=== PATIENT | female | born 1995 | race Caucasian/White ===

== ENCOUNTER 2022-01-20 19:07 | Emergency (ER) | payer OTHER ==
[2022-01-20 19:19] VITALS: BP 187/89; PULSE 97; RESP 16; TEMP 98.3
[2022-01-20] MEDS ORDERED: HYDROcodone/APAP 5-325MG 1 EACH TAB PO STA (21:21)
--- NOTE | 2022-01-20 21:45 | CT ---
EXAMINATION TYPE: CT brain kandiine wo con DATE OF EXAM: 01/20/2022 COMPARISON: None HISTORY: Fall, facial pain, headache and vomiting. CT DLP: 1127.2 mGycm Automated exposure control for dose reduction was used. Ventricles and sulci appear normal. There is no mass effect or midline shift. No sign of intracranial hemorrhage. The calvarium is intact. The cervical vertebra have normal spacing and alignment. Posterior element are intact. No compression fracture. Facet joints are intact. Prevertebral soft tissues are intact. IMPRESSION: Normal CT scan of the brain. Normal CT scan of the cervical spine.
--- NOTE | 2022-01-20 21:47 | CT ---
EXAMINATION TYPE: CT facial bones wo con DATE OF EXAM: 01/20/2022 COMPARISON: None HISTORY: Fall, facial pain, headache and vomiting. CT DLP: 1127.2 mGycm Automated exposure control for dose reduction was used. Images obtained from the bottom of the mandible to the top of the frontal sinuses with no contrast. The mandibular ring is intact. Temporomandibular joints are intact. The zygomatic arches appear mary l. Maxilla is intact. No evidence of orbital blowout fracture. The nasal bone is intact. The maxillar y spine is intact. There is mild subcutaneous edema anterior to the mandible. IMPRESSION: No fracture. Mild anterior subcutaneous edema at the mandible.
[2022-01-20] MEDS ORDERED: ACET/COD 300 MG/30 MG STARTER PACK 6 TAB BTL PO STA (22:27)
--- NOTE | 2022-01-20 22:30 | ED ---
Head Injury HPI - General Chief complaint: Head Injury Stated complaint: fall, head injury Time Seen by Provider: 01/20/22 21:09 Source: patient, RN notes reviewed Mode of arrival: ambulatory Limitations: no limitations - History of Present Illness Initial comments: Patient tripped over her cat last night about 3 AM and struck her left forehead. Patient planing of pain to her forehead as well as the right side of her neck. Patient states the pain in her neck is exacerbated by movement. Patient states she had a few episodes of vomiting right after the head injury but has no current nausea. Patient denying any vision or hearing disturbance. No double vision. No current dizziness. No vertigo symptoms. No other injuries. Patient did sustain an abrasion over her nose as well as her forehead. Patient up-to-date on immunizations. POSITIVE headache, no fever or chills, no changes in vision or hearing, no sore throat or difficulty with speech, no neck pain, no chest pain or shortness of breath, no abdominal pain, no nausea or vomiting, no changes in urination or bowel movements, no numbness or tingling, no extremity pain, no skin rashes or lesions. Past medical, surgical, social, and family history reviewed. MD Complaint: head injury, head pain - Related Data Previous Rx's Medication Instructions Recorded Cyclobenzaprine [Flexeril] 10 mg PO TID PRN #20 tab 01/20/22 Naproxen [Naprosyn] 375 mg PO Q12HR PRN #20 tablet 01/20/22 Allergies/Adverse reactions: Allergies Allergy/AdvReac Type Severity Reaction Status Date / Time Penicillins Allergy Rash/Hives Verified 01/20/22 19:15 Review of Systems ROS Statement: Those systems with pertinent positive or pertinent negative responses have been documented in the HPI. ROS Other: All systems not noted in ROS Statement are negative. Past Medical History Past Medical History: No Reported History History of Any Multi-Drug Resistant Organisms: None Reported Past Surgical History: Section Past Psychological History: No Psychological Hx Reported Smoking Status: Never smoker Past Alcohol Use History: Occasional Past Drug Use History: None Reported General Exam - General Exam Comments Initial Comments: Patient alert and oriented 4, cranial nerves II through XII are intact. Patient has notable swelling contusion to the left frontal area. There is a superficial abrasion to that area as well as the bridge of the nose. Tenderness to palpation. Extraocular movements are intact. Limitations: no limitations General appearance: alert, in no apparent distress Head exam: Present: other (Edema to the left frontal area as well as superficial abrasions as noted. Head is normal cephalic atraumatic otherwise.) Eye exam: Present: normal appearance, PERRL, EOMI, periorbital tenderness (Left supraorbital tenderness to palpation.). Absent: scleral icterus, conjunctival injection, nystagmus, periorbital swelling ENT exam: Present: normal exam, normal oropharynx, mucous membranes dry, mucous membranes moist, TM's normal bilaterally, normal external ear exam Neck exam: Present: normal inspection, tenderness (Patient has muscular tenderness to the right cervical musculature. No midline tenderness.), full ROM. Absent: meningismus, lymphadenopathy Respiratory exam: Present: normal lung sounds bilaterally. Absent: respiratory distress, wheezes, rales, rhonchi, stridor, chest wall tenderness, accessory muscle use, decreased breath sounds, prolonged expiratory Cardiovascular Exam: Present: regular rate, normal rhythm, normal heart sounds. Absent: systolic murmur, diastolic murmur, rubs, gallop, clicks GI/Abdominal exam: Present: soft, normal bowel sounds. Absent: distended, tenderness, guarding, rebound, rigid Extremities exam: Present: normal inspection, full ROM, normal capillary refill. Absent: tenderness, pedal edema, joint swelling, calf tenderness Back exam: Present: normal inspection Neurological exam: Present: alert, oriented X3, CN II-XII intact Expanded Patient oriented to: Present: person, place, time Speech: Present: fluid speech Cranial nerves: EOM's Intact: Normal, Gag Reflex: Normal, Tongue Deviation: Normal, Nystagmus: Normal, Facial Sensation: Normal, Facial Palsy with Forehead Movement: Normal, Facial Palsy without Forehead Movement: Normal Cerebellar function: Finger to Nose: Normal, Romberg: Normal Upper motor neuron: Jarad Neglect: Normal, Pronator Drift: Normal Eye Response: (4) open spontaneously Motor Response: (6) obeys commands Verbal Response: (5) oriented [place] Total: 15 Psychiatric exam: Present: normal affect, normal mood Skin exam: Present: warm, dry, intact, normal color. Absent: rash Course Vital Signs 01/20/22 19:16 Temperature 98.3 F Pulse Rate 97 Respiratory 16 Rate Blood Pressure 187/89 O2 Sat by Pulse 100 Oximetry Medical Decision Making - Medical Decision Making Patient presents with closed head injury and facial contusions as well as a soft tissue neck injury. Neurologically intact. No significant distress. I did agree to give the patient does have a Belen here as well as a Tylenol with codeine starter pack. We'll treat the patient tomorrow with anti-inflammatory medication and muscle relaxers. Patient here with her mother and has a ride home. We will stay with family until the 24 hour observation period is completed. Patient released in stable condition. No distress. Head injury instructions discussed in detail. Patient voiced understanding. Patient was told to return to the ER for any signs or symptoms worsen. Told to return immediately if any other problems arise. All questions answered. Treatment plan discussed. Patient in agreement Every effort has been made to ensure accuracy of this dictation. However, due to the limitations of electronic medical records and dictation devices, errors in charting still occur. [employer] Dr. Lawrence - Radiology Data Radiology results: report reviewed, image reviewed CT scans of the facial bones, brain, cervical spine interpreted by me show no evidence of acute pathology other than some mild soft tissue swelling to the facial area. Concur with radiology interpretation. Disposition Clinical Impression: Closed head injury, Forehead contusion, Cervical strain, acute, Elevated blood pressure reading Disposition: HOME SELF-CARE Condition: Good Instructions (If sedation given, give patient instructions): Head Injury (ED), Hypertension (ED), Acute Neck Pain (ED) Prescriptions: Cyclobenzaprine [Flexeril] 10 mg PO TID PRN #20 tab PRN Reason: Spasms Naproxen [Naprosyn] 375 mg PO Q12HR PRN #20 tablet PRN Reason: Pain Is patient prescribed a controlled substance at d/c from ED?: No Referrals: Nick Do MD [Primary Care Provider] - 1-2 days Time of Disposition: 22:28
== END 2022-01-20 22:37 | disposition home or self-care (01) ==
LOC: EC 19:07
DX: S16.1XXA Strain of muscle, fascia and tendon at neck level, initial encounter (principal); S00.83XA Contusion of other part of head, initial encounter; R03.0 Elevated blood-pressure reading, without diagnosis of hypertension; Z88.0 Allergy status to penicillin; W01.198A Fall on same level from slipping, tripping and stumbling with subsequent striking against other object, initial encounter; Y92.89 Other specified places as the place of occurrence of the external cause; Y99.8 Other external cause status
CPT/HCPCS: 70450; 70486; 72125; 99283